=== PATIENT | female | born 1970 | race Caucasian/White ===

== ENCOUNTER 2016-10-13 16:39 | Emergency (ER) | payer OTHER ==
[2016-10-13 19:46] LABS: Hematocrit 39 % (35-47); Hemoglobin 13.2 g/dl (12.0-16.0); Mean Corpuscular HGB Conc 34 g/dl (31-36); Mean Corpuscular Hemoglobin 30 pg (27-31); Mean Corpuscular Volume 88 fL (80-97); Mean Platelet Volume 9 um3 (7.4-10.4); Red Blood Count 4.44 10^6/ul (4.0-5.4); Red Cell Distribution Width 13 % (10.5-15); White Blood Count 8.6 10^3/ul (3.5-10.8)
[2016-10-13 19:51] LABS: Urine Bacteria Absent (Absent); Urine Bilirubin Negative (Negative); Urine Glucose Negative (Negative); Urine Nitrite Negative (Negative)
[2016-10-13 20:11] LABS: ALT 15 U/L (7-52); AST 12 U/L (13-39); Albumin 4.1 g/dL (3.2-5.2); Alkaline Phosphatase 47 U/L (34-104); Anion Gap 6 mmol/L (2-11); BUN/Creatinine Ratio 15.5 (8-20); Blood Urea Nitrogen 13 mg/dL (6-24); C Reactive Protein 2.67 mg/L (< 5.00); CO2 Carbon Dioxide 27 mmol/L (22-32); Calcium 9.2 mg/dL (8.6-10.3); Chloride 104 mmol/L (101-111); EGFR African American 94.7 (>60); EGFR Non-African American 73.7 (>60); Globulin 3.2 g/dL (2-4); Glucose 91 mg/dL (70-100); Lipase 17 U/L (11.0-82.0); Potassium 3.5 mmol/L (3.5-5.0); Sodium 137 mmol/L (133-145); Total Protein 7.3 g/dL (6.4-8.9)
--- NOTE | 2016-10-13 23:01 | RAD ---
INDICATION: RIGHT flank pain. COMPARISON: None. TECHNIQUE: Multidetector CT images were obtained from the lung bases to the ischial tuberosities. Evaluation of the viscera is limited without IV contrast. Multiplanar reformation. REPORT: Unremarkable visualized inferior thorax. Normal size and density liver without evidence for focal lesions or biliary dilatation. Largely decompressed gallbladder limiting assessment without gross abnormality. Unremarkable pancreas and spleen. Negative for CT abnormality of the upper GI, small bowel, or medially extending retrocecal appendix. Mild colonic diverticulosis without findings of diverticulitis. Negative for perienteric inflammatory change, ascites, free air, or significant hernias. Normal adrenal glands. Unremarkable kidneys. Negative for nephrolithiasis, hydronephrosis, or conspicuous focal lesions. Negative for perinephric stranding. Unremarkable nondilated ureters and partially distended urinary bladder. Lobular morphology of the uterus most consistent with presence of uterine fibroids. Unremarkable adnexal regions. Negative for lymphadenopathy. Normal diameter abdominal aorta and iliac arteries. Partially decompressed IVC indicating lower volume state. Negative for suspicious osseous lesions. IMPRESSION: 1. Normal appendix documented. 2. Negative for obstructive uropathy. 3. Probable fibroid uterus.
[2016-10-13 23:10] VITALS: BP 118/78
--- NOTE | 2016-10-14 14:44 | ED ---
Debbie Aceves Claudia, scribed for Pramod Chapman MD on 10/13/16 at 1920 . Abdominal Pain/Female - HPI Summary HPI Summary: 46 year old female presents to the ED with RLQ abd pain. Pt notes she was awoken with a sharp stabbing pain to her RLQ at 0400am today. Pt notes the pain continued today with intermittent episodes of stabbing pain. She notes that she thought it was a ovarian cyst but the Sx usually resolve within a few hours. Pt also mentions NVD today. Pt notes loss of appetite since yesterday evening. Pt also notes pain aggravates with movement, specifically climbing stairs and bending over. Pt denies any alleviating factors. She currently notes pain 10/17. - History of Current Complaint Chief Complaint: EDAbdPain Stated Complaint: LOWER RT ABD PAIN Time Seen by Provider: 10/13/16 18:43 Hx Obtained From: Patient Onset/Duration: Sudden Onset - 0400am today, Still Present Pain Intensity: 4 Pain Scale Used: 0-10 Numeric Location: Discrete At: RLQ Radiates: No Character: Sharp Aggravating Factor(s): Movement Alleviating Factor(s): Nothing Associated Signs and Symptoms: Positive: Nausea, Vomiting, Diarrhea Allergies/Adverse Reactions: Allergies Allergy/AdvReac Type Severity Reaction Status Date / Time No Known Allergies Allergy Verified 10/13/16 18:51 PMH/Surg Hx/FS Hx/Imm Hx Previously Healthy: Yes Endocrine/Hematology History: Denies: Hx Diabetes, Hx Anemia Cardiovascular History: Denies: Hx Myocardial Infarction GI History: Denies: Hx Jaundice Infectious Disease History: No Infectious Disease History: Denies: Traveled Outside the [place] in Last 30 Days - Family History Known Family History: Positive: Cardiac Disease, Diabetes - Social History Occupation: Employed Full-time Lives: Alone Alcohol Amount: once a week 1-2 drinks Substance Use Type: Reports: None Smoking Status (MU): Former Smoker Type: Cigarettes Review of Systems Constitutional: Negative Negative: Fever Eyes: Negative ENT: Negative Cardiovascular: Negative Respiratory: Negative Positive: Abdominal Pain, Vomiting, Diarrhea, Nausea Genitourinary: Negative Musculoskeletal: Negative Skin: Negative Neurological: Negative Psychological: Normal All Other Systems Reviewed And Are Negative: Yes Physical Exam Triage Information Reviewed: Yes Vital Signs On Initial Exam: Initial Vitals Temp Pulse Resp BP Pulse Ox 98.1 F 71 18 133/81 100 10/13/16 16:41 10/13/16 16:41 10/13/16 16:41 10/13/16 16:41 10/13/16 16:41 Vital Signs Reviewed: Yes Appearance: Positive: Well-Appearing, No Pain Distress Skin: Positive: Warm, Skin Color Reflects Adequate Perfusion, Dry Head/Face: Positive: Normal Head/Face Inspection Eyes: Positive: Normal ENT: Positive: Normal ENT inspection Neck: Positive: Supple, Nontender Respiratory/Lung Sounds: Positive: Clear to Auscultation, Breath Sounds Present Cardiovascular: Positive: RRR Abdomen Description: Positive: Soft, [place] Tenderness Musculoskeletal: Positive: Normal Neurological: Positive: Normal Psychiatric: Positive: Affect/Mood Appropriate - [place] Coma Scale Coma Scale Total: 15 Diagnostics - Vital Signs Vital Signs Temp Pulse Resp BP Pulse Ox 10/13/16 18:41 47 92 10/13/16 18:39 124/71 10/13/16 18:30 98.9 F 66 16 124/71 100 10/13/16 16:41 98.1 F 71 18 133/81 100 - Laboratory Lab Results: Lab Results 10/13/16 10/13/16 10/13/16 Range/Units 18:50 19:30 19:30 WBC 8.6 (3.5-10.8) 10^3/ul RBC 4.44 (4.0-5.4) 10^6/ul Hgb 13.2 (12.0-16.0) g/dl Hct 39 (35-47) % MCV 88 (80-97) fL MCH 30 (27-31) pg MCHC 34 (31-36) g/dl RDW 13 (10.5-15) % Plt Count 259 (150-450) 10^3/ul MPV 9 (7.4-10.4) um3 Neut % (Auto) 56.1 (38-83) % Lymph % (Auto) 34.1 (25-47) % Hughes % (Auto) 6.6 (1-9) % Eos % (Auto) 1.9 (0-6) % Baso % (Auto) 1.3 (0-2) % Absolute Neuts (auto) 4.8 (1.5-7.7) 10^3/ul Absolute Lymphs (auto) 2.9 (1.0-4.8) 10^3/ul Absolute Monos (auto) 0.6 (0-0.8) 10^3/ul Absolute Eos (auto) 0.2 (0-0.6) 10^3/ul Absolute Basos (auto) 0.1 (0-0.2) 10^3/ul Absolute Nucleated RBC 0.01 10^3/ul Nucleated RBC % 0.1 Sodium 137 (133-145) mmol/L Potassium 3.5 (3.5-5.0) mmol/L Chloride 104 (101-111) mmol/L Carbon Dioxide 27 (22-32) mmol/L Anion Gap 6 (2-11) mmol/L BUN 13 (6-24) mg/dL Creatinine 0.84 (0.51-0.95) mg/dL Est GFR ( Amer) 94.7 (>60) Est GFR (Non-Af Amer) 73.7 (>60) BUN/Creatinine Ratio 15.5 (8-20) Glucose 91 (70-100) mg/dL Lactic Acid (0.5-2.0) mmol/L Calcium 9.2 (8.6-10.3) mg/dL Total Bilirubin 0.20 (0.2-1.0) mg/dL AST 12 L (13-39) U/L ALT 15 (7-52) U/L Alkaline Phosphatase 47 (34-104) U/L C-Reactive Protein 2.67 (< 5.00) mg/L Total Protein 7.3 (6.4-8.9) g/dL Albumin 4.1 (3.2-5.2) g/dL Globulin 3.2 (2-4) g/dL Albumin/Globulin Ratio 1.3 (1-3) Lipase 17 (11.0-82.0) U/L Beta HCG, Quant < 0.60 mIU/mL Urine Color Yellow Urine Appearance Cloudy Urine pH 5.0 (5-9) Ur Specific [place] 1.025 (1.010-1.030) Urine Protein Negative (Negative) Urine Ketones Negative (Negative) Urine Blood Negative (Negative) Urine Nitrate Negative (Negative) Urine Bilirubin Negative (Negative) Urine Urobilinogen Negative (Negative) Ur Leukocyte Esterase Trace H (Negative) Urine WBC (Auto) Trace(0-5/hpf) (Absent) Urine RBC (Auto) Trace(0-2/hpf) (Absent) Ur Squamous Epith Cells Present H (Absent) Urine Bacteria Absent (Absent) Urine Glucose Negative (Negative) 10/13/16 Range/Units 19:30 WBC (3.5-10.8) 10^3/ul RBC (4.0-5.4) 10^6/ul Hgb (12.0-16.0) g/dl Hct (35-47) % MCV (80-97) fL MCH (27-31) pg MCHC (31-36) g/dl RDW (10.5-15) % Plt Count (150-450) 10^3/ul MPV (7.4-10.4) um3 Neut % (Auto) (38-83) % Lymph % (Auto) (25-47) % Hughes % (Auto) (1-9) % Eos % (Auto) (0-6) % Baso % (Auto) (0-2) % Absolute Neuts (auto) (1.5-7.7) 10^3/ul Absolute Lymphs (auto) (1.0-4.8) 10^3/ul Absolute Monos (auto) (0-0.8) 10^3/ul Absolute Eos (auto) (0-0.6) 10^3/ul Absolute Basos (auto) (0-0.2) 10^3/ul Absolute Nucleated RBC 10^3/ul Nucleated RBC % Sodium (133-145) mmol/L Potassium (3.5-5.0) mmol/L Chloride (101-111) mmol/L Carbon Dioxide (22-32) mmol/L Anion Gap (2-11) mmol/L BUN (6-24) mg/dL Creatinine (0.51-0.95) mg/dL Est GFR ( Amer) (>60) Est GFR (Non-Af Amer) (>60) BUN/Creatinine Ratio (8-20) Glucose (70-100) mg/dL Lactic Acid 1.0 (0.5-2.0) mmol/L Calcium (8.6-10.3) mg/dL Total Bilirubin (0.2-1.0) mg/dL AST (13-39) U/L ALT (7-52) U/L Alkaline Phosphatase (34-104) U/L C-Reactive Protein (< 5.00) mg/L Total Protein (6.4-8.9) g/dL Albumin (3.2-5.2) g/dL Globulin (2-4) g/dL Albumin/Globulin Ratio (1-3) Lipase (11.0-82.0) U/L Beta HCG, Quant mIU/mL Urine Color Urine Appearance Urine pH (5-9) Ur Specific [place] (1.010-1.030) Urine Protein (Negative) Urine Ketones (Negative) Urine Blood (Negative) Urine Nitrate (Negative) Urine Bilirubin (Negative) Urine Urobilinogen (Negative) Ur Leukocyte Esterase (Negative) Urine WBC (Auto) (Absent) Urine RBC (Auto) (Absent) Ur Squamous Epith Cells (Absent) Urine Bacteria (Absent) Urine Glucose (Negative) Result Diagrams: 10/13/16 19:30 10/13/16 19:30 Lab Statement: Any lab studies that have been ordered have been reviewed, and results considered in the medical decision making process. Re-Evaluation - Re-Evaluation 1 Re-Evaluation Time: 21:37 Comment: Discussed lab results with pt and discussed non-contrast CT abd/pelvis Abdominal Pain Fem Course/Dx - Course Course Of Treatment: Esther Rogers came in concerned that she may have appendicitis because of a pain in her lower right side. Her W/U showed normal labs and a normal appendix however she does have uterine fibroids and reports heavier than usual periods lately. 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 - Diagnoses Provider Diagnoses: Uterine fibroid, Abdominal pain Discharge - Discharge Plan Condition: Stable Disposition: HOME Discharge Disposition Comment: Sign-out waiting CT Abd/Pelvis Patient Education Materials: Uterine Fibroids (ED), Abdominal Pain (ED) Referrals: Perri Martínez MD [Primary Care Provider] - 3 Days The documentation as recorded by the Debbie suarez Claudia accurately reflects the service I personally performed and the decisions made by me, Pramod Chapman MD.
== END 2016-10-13 23:26 | disposition home or self-care (01) ==
LOC: ED 16:39
DX: D25.9 Leiomyoma of uterus, unspecified (principal); R10.31 Right lower quadrant pain; R11.2 Nausea with vomiting, unspecified; R19.7 Diarrhea, unspecified; Z87.891 Personal history of nicotine dependence
CPT/HCPCS: 36415; 74176; 80053; 81003; 81015; 83605; 83690; 84702; 85025; 86140; 87086; 99283

== ENCOUNTER 2017-11-05 14:23 | Emergency (ER) | payer OTHER ==
[2017-11-05] MEDS ORDERED: Aspirin 81 mg CHEW TAB* 81 MG TAB.CHEW PO ONE (15:51)
[2017-11-05] MEDS ORDERED: Nitroglycerin TAB 0.4 MG* 0.4 MG TAB SL ONE (15:51)
[2017-11-05 16:15] LABS: Hematocrit 38 % (35-47); Hemoglobin 13.3 g/dl (12.0-16.0); Mean Corpuscular HGB Conc 35 g/dl (31-36); Mean Corpuscular Hemoglobin 30 pg (27-31); Mean Corpuscular Volume 88 fL (80-97); Mean Platelet Volume 8.9 um3 (7.4-10.4); Platelet Count 282 10^3/ul (150-450); Red Blood Count 4.37 10^6/ul (4.0-5.4); Red Cell Distribution Width 13 % (10.5-15); White Blood Count 7.4 10^3/ul (3.5-10.8)
[2017-11-05 16:24] LABS: INR 0.94 (0.77-1.02)
[2017-11-05 16:38] LABS: EGFR Non-African American 73.3 (>60)
--- NOTE | 2017-11-05 16:44 | RAD ---
INDICATION: Chest pain and ankle swelling. COMPARISON: October 13, [address] TECHNIQUE: Dual energy PA and routine lateral views of the chest were obtained. REPORT: Clear lungs and pleural spaces. Negative for pneumothorax. The heart, pulmonary vasculature, and mediastinal contours are unremarkable. Unremarkable osseous structures and soft tissue contours. IMPRESSION: No evidence for acute intrathoracic disease.
[2017-11-05] MEDS ORDERED: Nitroglycerin 2% OINT* 1 GM PAK TOPICAL ONE (17:00)
[2017-11-05] MEDS ORDERED: Nitroglycerin 2% OINT* 1 GM PAK ONE (17:01)
[2017-11-05] MEDS ORDERED: Iohexol 300* (CONTRAST) 10 ML SDV IV ONE (18:11)
[2017-11-05] MEDS ORDERED: NS 0.9% 1000 ML* 1,000 ML IV ONE (18:14)
[2017-11-05] MEDS ORDERED: Acetaminophen TAB* 325 MG PO PRN (18:40)
--- NOTE | 2017-11-05 19:25 | CONSULT ---
Subjective Date of Service: 11/05/17 Interval History: This is a 47 year old female with a report of left sided chest wall pain that radiates into the left axilla. Worse with deep inspiration and palpation. Patient also reports bilateral ankle edema throughout the day that resolves after elevation and is gone in the morning. Patient states that she is active, walks daily is on her feet a lot. Walks her dog which pulls on the leash quite a bit. States the pain started a couple of days ago and has gotten worse, denies associated dyspnea, no diaphoresis, no dizziness, no headache. Family History: Findings - mother with hypertension and post-operative PE after knee replacement, unknown paternal hx Social History: Findings - remote history of tobacco, does not drink ETOH regularly, works FT, sister is proxy Past Medical History: Findings - no reported medical history Review of Systems - Review of Systems Constitutional Symptoms: Negative: Weight Gain, Weight Loss, Weakness, Fatigue, Fever, Night Sweats, Unexplained Falls, Other Dermatology: Negative: Normal, Rash, Skin Lesions, Cancer, Skin Lumps, Other HEENT: Negative: Normal, Change in Hearing, Vertigo, Dental Problems, Tinnitus, Sinus Problem, Other Eyes: Negative: Normal, Change in Vision, Double Vision, Eye Pain, Glaucoma, Cataract, Contacts or Glasses, Other Thyroid: Negative: Normal, Goiter, Thyroid Nodule, Cold Intolerance, Heat Intolerance , Sweatiness, Tremor, Frequent Defecation, Constipation, Palpitations, Primary Hypothyroidism, Primary Hyperthyroidism, Weight Loss, Weight Gain, Change in Skin/Hair, Change in Menstruation, Radiation Exposure, Other Pulmonary: Positive: Other - left chest pain with deep inspiration Cardiology: Positive: Swelling of Ankles Gastroenterology: Negative: Normal, Abdominal Pain, Nausea, Vomiting, Anorexia, Indigestion, Difficulty Swallowing, Heartburn, Constipation, Diarrhea, Blood in Stools, Change in Bowel Habits, Haematemesis, Melena, Other Genital - Urinary: Negative: Normal, Dysuria, Hematuria, Polyuria, Nocturia, Other Genitourinay - Female: Negative: Menses Normal, Vaginal Discharge, Menopause, Dysmenorrhea, Other Musculoskeletal: Positive: Other - chest wall pain Endocrinology: Negative: Normal, Thyroid Problems, Adrenal Problems, Gonadal Problems, Family Hx Endocrine Disorders, Obesity, Diabetes Mellitus, Hyperglycemia, Hx Hypoglycemia, Diabetic Foot Ulcers, Calluses, Hirsutism, Menstral Abnormalities , Polydipsia, Polyuria, Gonadal Problems, Gynecomastia, Pituitary disease, Other Hematologic/Lymphatic: Negative: Anemia, Easy Brusing, Hx Leukemia, Hx Lymphoma, Use of Anticoagulant, Use of Antiplatelet Drugs, Other Neurology: Negative: Normal, Headache, Migraines, Change in Vision, Diplopia, Dizziness , Change in Balancing, Change in Coordination, Change in Memory, Change in Speech, Change in Sphincter Function, Change in Walking, Numbness\Paresthesiae, Unexplained Weakness, Hx of Stroke\TIA, Hx of Seizures, Other Psychiatry: Negative: Normal, Depression, Anxiety, Depressed Mood, Adhedonia, Sexual Dysfunction, Weight Change, Guilt Feelings, Tearfulness, Unusual Fatigue, Unusual Anxiety, Suicidal Ideation, Hypomania, Eating Disorders, Other Allergic/Immunologic: Negative: Hx Anaphylaxis, Hx Angioedema, Hx Environmental, Hx Seasonal, Athsma, Hx HIV, Immunocompromise, Swollen Glands LymphNodes, Other Objective Active Medications: Acetaminophen (Tylenol Tab*) 650 mg PO Q6H PRN PRN Reason: fever or headache Additional Medications: Multivitamin Vital Signs - 8 hr 11/05/17 18:51 Temperature 97.6 F Pulse Rate 70 Respiratory 16 Rate Blood Pressure 107/69 (mmHg) O2 Sat by Pulse 100 Oximetry Oxygen Devices in Use Now: None Appearance: Alert, anxious Ears/Nose/Mouth/Throat: NL Teeth, Lips, Gums, Mucous Membranes Moist Neck: NL Appearance and Movements; NL JVP, No Thyroid Enlargement, Masses Respiratory: Symmetrical Chest Expansion and Respiratory Effort, Clear to Auscultation Cardiovascular: NL Sounds; No Murmurs; No JVD, RRR, No Edema Abdominal: NL Sounds; No Tenderness; No Distention Lymphatic: No Cervical Adenopathy Extremities: No Edema, No Clubbing, Cyanosis Skin: No Rash or Ulcers Neurological: Alert and Oriented x 3, NL Sensation, NL Gait Nutrition: Taking PO's Result Diagrams: 11/05/17 15:55 11/05/17 15:55 Diagnostic Imaging: Patient Name: ERICK IRVING Medical Record#: [id number] Ordering Physician: Stefano Al MD Acct.#: [id number] : 1970 Age: 47 Sex: F Location: EMERGENCY DEPARTMENT Exam Date: 11/05/17 155 ADM Status: PRE ER Order Information: CHEST PA & LAT 2 VWS Accession Number: [id number] CPT: 02369 INDICATION: Chest pain and ankle swelling. COMPARISON: October 13, [address] TECHNIQUE: Dual energy PA and routine lateral views of the chest were obtained. REPORT: Clear lungs and pleural spaces. Negative for pneumothorax. The heart, pulmonary vasculature, and mediastinal contours are unremarkable. Unremarkable osseous structures and soft tissue contours. IMPRESSION: No evidence for acute intrathoracic disease. <Electronically signed by Charles Clifton MD in OV> 11/05/17 1641 Dictated By: Charles Clifton MD Dictated Date/Time: 11/05/17 164 Transcribed Date/Time: 11/05/17 1639 Copy to: EKG Data: RSR, no ectopy Assessment/Plan - Billing Plan By Medical Problem: 1. Chest Wall Pain 2. Ankle edema, now resolved Recommendations 1. CTA of the chest has been ordered but was not completed yet. Patient wishes to complete the CT of her chest to rule out PE but if it is negative she wishes to be discharged to home and wants to follow up with Dr. Sagastume this week, and will pursue continued outpatient work up and diagnostics as warranted. 2. Explained to patient that we recommend the patient stay to trend troponins and have stress test in the morning. If negative, she can be discharged after. 3. Given the reproducible nature of this chest wall pain and pain when left axilla is palpated, muskuloskeletal pain/costochondritis would still be in the differential. Also recommended compression socks for ankle edema, as swelling dissipates with elevation and is likely vascular dependent edema. Also cautioned against high sodium in meals. 4. In either case, patient warrants outpatient follow up early this week if she wishes to be discharged after CTA. Patient states she is agreeable to immediate follow up and would return to the ER if she had continued symptoms, or any shortness of breath, dizziness or increased pain. 5. These recommendations were discussed with Dr. Al and he is aware of the patient's wishes. Also discussed with Dr. Mary, attending Hospitalist. Thank you for asking us to evaluate this patient with you. Please do not hesitate to call us back if patient wishes to pursue admission.
--- NOTE | 2017-11-05 19:55 | RAD ---
INDICATION: Chest pain. Family history of PE. Bilateral leg swelling. COMPARISON: November 05, 2017 chest radiograph TECHNIQUE: Multidetector CT images were obtained from the lung apices to the upper abdomen with 75 mL Omnipaque 350 IV contrast. Pulmonary angiogram protocol. Multiplanar reformation including with maximum intensity projection. REPORT: Negative for pulmonary infiltrate, focal pulmonary lesion, pleural effusion, pneumothorax. 0.8 cm short axis RIGHT paratracheal lymph node and similar size subcarinal lymph node. Bilateral hilar nodes measuring up to 0.7 cm short axis on the RIGHT and 0.6 cm short axis on the LEFT within normal limits. Negative for cardiomegaly or pericardial effusion. Normal diameter thoracic aorta. Negative for aortic dissection. No filling defects are identified from the main to the subsegmental pulmonary arteries to indicate presence of a pulmonary embolism. Unremarkable Limited images through the upper abdomen. Negative for suspicious thoracic osseous lesions. IMPRESSION: 1. Negative for pulmonary embolism. 2. Negative for pneumonia. 3. Upper normal sized mediastinal and hilar lymph nodes. While nonspecific consider potential sarcoidosis. 4. No compelling evidence for pulmonary edema.
[2017-11-05] MEDS ORDERED: Iohexol 350* (CONTRAST) 500 ML MDV IV ONE (21:04)
[2017-11-05 21:26] VITALS: BP 107/85
--- NOTE | 2017-11-14 08:58 | ED ---
Sherif Aceves Tiffany, scribed for Stefano Al MD on 11/05/17 at 1544 . Lower Extremity - HPI Summary HPI Summary: The patient is a 47 year old female presenting to [facility] accompanied by sister and nephew complains of bilateral leg swelling since 10/30/17, worse since yesterday evening. Symptoms aggravated by nothing. Symptoms alleviated by nothing. Reports chest pressure that began last night. States that chest pain is constant, feels like squeezing and pressure, radiates to upper shoulder. Additionally reports shortness of breath. Denies cough. Reports left ankle injury from a "couple of years ago," but never had surgery. A few days ago, right ankle began swelling. Expresses concern for family history of PE and kidney issues. Additionally reports right knee swelling. - History of Current Complaint Chief Complaint: EDChestPainROMI Stated Complaint: CHEST PAIN/SWOLLEN ANKLES Time Seen by Provider: 11/05/17 15:28 Hx Obtained From: Patient Timing: Constant Associated Signs And Symptoms: Positive: Negative - Cough, Swelling - Right ankle, right knee, Other - chest pressure that began last night, is constant, feels like squeezing and pressure, radiates to upper shoulder; shortness of breath Aggravating Factor(s): Nothing Alleviating Factor(s): Nothing - Allergies/Home Medications Allergies/Adverse Reactions: Allergies Allergy/AdvReac Type Severity Reaction Status Date / Time No Known Allergies Allergy Verified 10/13/16 18:51 Home Medications: Home Medications Multivitamins/Minerals TAB* [Theragran/minerals TAB*] 1 tab PO DAILY 11/05/17 [ History Confirmed 11/05/17] PMH/Surg Hx/FS Hx/Imm Hx Previously Healthy: No Endocrine/Hematology History: Denies: Hx Diabetes, Hx Anemia Cardiovascular History: Denies: Hx Myocardial Infarction GI History: Denies: Hx Jaundice - Surgical History Surgery Procedure, Year, and Place: None Infectious Disease History: No Infectious Disease History: Denies: Traveled Outside the [place] in Last 30 Days - Family History Known Family History: Positive: Cardiac Disease - Grandfather, Diabetes, Other - Pulmonary embolism in grandmother, - Social History Alcohol Use: Occasionally Alcohol Amount: once a week 1-2 drinks Hx Substance Use: No Substance Use Type: Reports: None Hx Tobacco Use: Yes Smoking Status (MU): Former Smoker Type: Cigarettes Review of Systems Negative: Fever, Chills Negative: Erythema Negative: Sore Throat Positive: Chest Pain - , is constant, feels like squeezing and pressure, radiates to upper shoulder Positive: Shortness Of Breath. Negative: Cough Negative: Abdominal Pain, Vomiting, Nausea Negative: dysuria, hematuria Positive: Edema - Bilateral leg, right ankle, right knee. Negative: Myalgia Negative: Rash Neurological: Negative - Dizziness All Other Systems Reviewed And Are Negative: Yes Physical Exam - Summary Physical Exam Summary: Constitutional: Well-developed, Well-nourished, Alert. Skin: Warm, Dry HENT: Normocephalic; Atraumatic Eyes: Conjunctiva normal Neck: Musculoskeletal ROM normal neck. (-) JVD, (-) Stridor, (-) Tracheal deviation Cardio: Rhythm regular, rate normal, Heart sounds normal; Intact distal pulses; The pedal pulses are 2+ and symmetric. Radial pulses are 2+ and symmetric. (-) Murmur Pulmonary/Chest wall: Effort normal. (-) Respiratory distress, (-) Wheezes, (-) Rales Abd: Soft, (-) Tenderness, (-) Distension, (-) Guarding, (-) Rebound Musculoskeletal: Post-op swelling on right knee from when she was 4 years old Lymph: (-) Cervical adenopathy Neuro: Alert, Oriented x3 Psych: Patient is concerned for FHx of PE and kidney issues. She is mildly anxious-appearing. Triage Information Reviewed: Yes Vital Signs On Initial Exam: Initial Vitals Temp Pulse Resp BP Pulse Ox 97.6 F 73 18 138/94 98 11/05/17 14:25 11/05/17 14:25 11/05/17 14:25 11/05/17 14:25 11/05/17 14:25 Vital Signs Reviewed: Yes Diagnostics - Vital Signs Vital Signs Temp Pulse Resp BP Pulse Ox 11/05/17 14:25 97.6 F 73 18 138/94 98 - Laboratory Result Diagrams: 11/05/17 15:55 11/05/17 15:55 Lab Statement: Any lab studies that have been ordered have been reviewed, and results considered in the medical decision making process. - Radiology CXR Radiology Interpretation Completed By: Radiologist - No evidence for acute intrthoracic disease. ED Physician has reviewed this report. - CT Chest/Thorax CT CT Interpretation Completed By: Radiologist - 1. Negative for Pulmonary Embolism 2. Negative for pneumonia 3. upper normal sized medistinal and hilar lymphnodes while nonspecific consider potential sarcoidosis 4. No compelling evidence for pulmonary edema ED Physician has reviewed this report. - EKG 1430 Cardiac Rate: NL EKG Rhythm: Sinus Rhythm - at 72 BPM EKG Interpretation: no STEMI Re-Evaluation - Re-Evaluation 1 Re-Evaluation Time: 18:15 Comment: Pt rates pain 4/10 in severity. Lower Extremity Course/Dx - Course Course Of Treatment: 47 year old [facility] of bilateral leg swelling since 10/30/17, worse since yesterday evening. Reports chest pressure that began last night. States that chest pain is constant, feels like squeezing and pressure, radiates to upper shoulder. Additionally reports shortness of breath. CXR and EKG are no acutly concerning. However, pt is of clinical concern since she has not seen her PCP in several years. She has no available follow up for a stress test. Her fathers medically history is unknown. Discussed with Dr. Weems, a planned stress test tomorrow morning. A less desirable plan is to have patient follow up with her PCP. I am not confident this could happen in a timely manner. Information about sarcoidosis was provided. I specified that the sarcoidosis finding is an uncofirmed dx. I explained to pt the risks of AMA including disability and . Pt was also given the [facility] referal list to find a new PCP if needed. - Diagnoses Provider Diagnoses: Chest pain, unspecified, Abnormal finding on CT scan - Physician Notifications Discussed Care Of Patient With: Kurtis Chun MD - hospitalist Time Discussed With Above Provider: 18:23 Instructed by Provider To: Admit As Inpatient Discharge - Sign-Out/Discharge Documenting (check all that apply): Discharge/Admit/Transfer - admit - Discharge Plan Condition: Stable Disposition: ADMITTED TO [facility] documentation as recorded by the Sherif suarez Tiffany accurately reflects the service I personally performed and the decisions made by me, Stefano Al MD.
== END 2017-11-05 21:20 | disposition left against medical advice (07) ==
LOC: ED 14:23 → UNDOADMOB 18:35 → MEDTELE 18:35
DX: R07.89 Other chest pain (principal); R94.8 Abnormal results of function studies of other organs and systems; Z87.891 Personal history of nicotine dependence; Z53.21 Procedure and treatment not carried out due to patient leaving prior to being seen by health care provider
CPT/HCPCS: 36415; 71046; 71275; 80053; 83880; 84484; 85027; 85610; 85730; 93005; 99284; A9270-GY; Q9967

== ENCOUNTER 2024-08-02 11:36 | Inpatient (IN) ==
[2024-08-02] MEDS ORDERED: methylPREDNISolone SOD SUCC 125 mg 2 ML VIAL IV ONE (16:26)
[2024-08-02] MEDS: Acetaminophen IV 1 GM/100ML 1,000 MG/100 ML BAG IV ONE (16:47)
[2024-08-02 17:08] LABS: ABS Basophils 0.1 10^3/uL (0.0-0.1); ABS Eosinophils 0.1 10^3/uL (0.0-0.5); ABS Lymphocytes 3.2 10^3/uL (1.0-4.8); ABS Monocytes 0.5 10^3/uL (0.0-0.9); ABS Neutrophils 4.3 10^3/uL (1.5-7.6); ABS Nucleated RBC 0.01 10^3/ul; Hematocrit 38.7 % (35-45); Hemoglobin 13.3 g/dL (11.5-14.3); Lymphocyte % 39.3 %; Mean Corpuscular Hemoglobin 30.2 pg (27-33); Mean Corpuscular Hgb Conc 34.3 g/dL (31-36); Mean Corpuscular Volume 88.1 fL (80-97); Mean Platelet Volume 9.1 fL (7.5-11.2); Nucleated Red Blood Cells % 0.1 %/100WBC (0.0-0.8); Platelet Count 262 10^3/uL (150-450); Red Blood Count 4.39 10^6/uL (3.63-4.92); White Blood Count 8.3 10^3/uL (3.8-11.8)
[2024-08-02] MEDS: methylPREDNISolone SOD SUCC 1000 MG in NS 0.9% 100 ML IVPB ONE (17:46)
[2024-08-02 17:49] LABS: C Reactive Protein 4.29 mg/L (<8.01)
[2024-08-02 17:57] LABS: Calcium 9.6 mg/dL (8.6-10.3); Creatinine, Serum 0.8 mg/dL (0.51-0.95); Potassium 4.1 mmol/L (3.5-5.0); eGFR CKD-EPI 88.6 (>60)
[2024-08-02 18:05] LABS: TSH Ultra Thyroid Stim Horm 1.47 mcIU/mL (0.34-5.60)
[2024-08-02 18:16] LABS: Folate 11.42 ng/mL (5.90-24.80)
[2024-08-02 19:01] LABS: Erythrocyte Sed Rate 20 mm/Hr (0-29)
[2024-08-02] MEDS: Midazolam 5 mg/5 ml VIAL 1 mg/ml 5 ml VIAL (5 mg) IV SLOW PU ONE (20:47)
[2024-08-03] MEDS: Cyanocobalamin INJ 1,000 MCG/ML VIAL 1 ML VIAL IM ONE ×2 (01:08→12:07)
[2024-08-03] MEDS ORDERED: Senna TAB 8.6 mg TAB PO PRN (05:51)
[2024-08-03] MEDS: Gadoteridol (CONTRAST) 279.3 MG/ML 10 ML IV ONE (07:59)
[2024-08-03] MEDS: Polyethylene Glycol 3350 17 GM PACKET PO SCH (09:34)
[2024-08-03] MEDS ORDERED: Lorazepam PYXIS KEY PRN (10:22)
[2024-08-03] MEDS ORDERED: Lidocaine 1% MPF 5 ML VIAL ONE (10:23)
[2024-08-03] MEDS: LORazepam 2 mg VIAL 1 ml IV PUSH ONE ×2 (10:35→11:33)
[2024-08-03] MEDS: Multivitamins/Minerals TAB PO SCH (12:03)
[2024-08-03] MEDS: methylPREDNISolone SOD SUCC 1,000 MG in NS 0.9% 250 ml 250 ML IVPB SCH (15:02)
[2024-08-03] MEDS ORDERED: methylPREDNISolone SOD SUCC 1,000 MG in NS 0.9% 1000 ml BAG 1,000 ML IVPB ONE (17:00)
[2024-08-03] MEDS: Iohexol 350 (CONTRAST) 500 ML MDV IV ONE (17:41)
[2024-08-04] MEDS: Enoxaparin 40 MG/0.4 ML SYR SUBCUT ONE (11:31)
[2024-08-05] MEDS: Cyanocobalamin INJ 1,000 MCG/ML VIAL 1 ML VIAL IM SCH (08:51)
[2024-08-05] MEDS: Ondansetron 4 mg VIAL 2 MG/ML 2 ml VIAL IV PRN (13:52)
[2024-08-05 14:10] LABS: Hematocrit 37.2 % (35-45); Hemoglobin 12.6 g/dL (11.5-14.3); Mean Corpuscular Hemoglobin 29.9 pg (27-33); Mean Corpuscular Hgb Conc 33.9 g/dL (31-36); Mean Platelet Volume 9.1 fL (7.5-11.2); Platelet Count 262 10^3/uL (150-450); Red Blood Count 4.23 10^6/uL (3.63-4.92); Red Cell Distribution Width 14.3 % (12-17); White Blood Count 12.9 10^3/uL (3.8-11.8)
[2024-08-05 16:20] LABS: Erythrocyte Sed Rate 20 mm/Hr (0-29)
[2024-08-05 16:26] LABS: Body Fluid Source Cerebral Spinal
[2024-08-05 16:44] LABS: CSF Glucose 64 mg/dL (40-70)
[2024-08-05] MEDS: fentaNYL 100 mcg/2 ml 50 MCG/ML VIAL ONE (17:02)
[2024-08-05 17:19] LABS: Body Fluid Appearance Clear; Body Fluid Color Colorless; CSF Tube # 4
[2024-08-05 17:38] LABS: Body Fluid Mono 27 %; Body Fluid Total Cells Counted 200
[2024-08-05 17:44] LABS: CSF Body Fluid WBC 73 /mcL (0-5)
[2024-08-06] MEDS: Lactated Ringers 1000 ml BAG 1,000 ML IV SCH (06:20)
[2024-08-06 09:59] LABS: Hematocrit 35.2 % (35-45); Hemoglobin 12.2 g/dL (11.5-14.3); Mean Corpuscular Hemoglobin 30.4 pg (27-33); Mean Corpuscular Hgb Conc 34.7 g/dL (31-36); Mean Corpuscular Volume 87.4 fL (80-97); Mean Platelet Volume 8.5 fL (7.5-11.2); Platelet Count 202 10^3/uL (150-450); Red Blood Count 4.03 10^6/uL (3.63-4.92); Red Cell Distribution Width 14.1 % (12-17); White Blood Count 6.4 10^3/uL (3.8-11.8)
[2024-08-06 10:05] LABS: INR 1.11 (0.85-1.14)
[2024-08-06 10:33] LABS: Calcium 7.5 mg/dL (8.6-10.3); Creatinine, Serum 0.91 mg/dL (0.51-0.95); Potassium 3.2 mmol/L (3.5-5.0); eGFR CKD-EPI 75.9 (>60)
[2024-08-06 15:27] LABS: MOG FACS, S Negative (Negative)
[2024-08-06] MEDS: Azithromycin 500 mg/250 ml NS 500 MG/250 ML BAG IVPB ONE ×2 (16:19)
[2024-08-06] MEDS: Acyclovir IV 800 MG in NS 0.9% 250 ml 250 ML IVPB SCH (17:34)
[2024-08-06] MEDS: Enoxaparin 40 MG/0.4 ML SYR SUBCUT SCH (17:34)
[2024-08-07] MEDS: Potassium Chlor 20 meq TAB.ER PO ONE (10:47)
[2024-08-07 11:26] LABS: ABS Eosinophils 0.1 10^3/uL (0.0-0.5); ABS Lymphocytes 2.4 10^3/uL (1.0-4.8); ABS Monocytes 0.4 10^3/uL (0.0-0.9); ABS Neutrophils 4.1 10^3/uL (1.5-7.6); Eosinophil % 0.9 %; Hematocrit 37.6 % (35-45); Hemoglobin 13.4 g/dL (11.5-14.3); Lymphocyte % 34.7 %; Mean Corpuscular Hemoglobin 30.7 pg (27-33); Mean Corpuscular Hgb Conc 35.6 g/dL (31-36); Mean Corpuscular Volume 86.3 fL (80-97); Mean Platelet Volume 8.7 fL (7.5-11.2); Platelet Count 219 10^3/uL (150-450); Red Blood Count 4.35 10^6/uL (3.63-4.92); Red Cell Distribution Width 13.5 % (12-17); White Blood Count 7.1 10^3/uL (3.8-11.8)
[2024-08-07] MEDS: Lactated Ringers 1000 ml BAG 1,000 ML IV ONE (11:44)
[2024-08-07 11:51] LABS: Calcium 8.2 mg/dL (8.6-10.3); Creatinine, Serum 0.74 mg/dL (0.51-0.95); Potassium 3.2 mmol/L (3.5-5.0); eGFR CKD-EPI 97.3 (>60)
[2024-08-07] MEDS: Lactated Ringers 1000 ml BAG 1,000 ML IV SCH (12:40)
[2024-08-07] MEDS: NS 0.9% IVPB SCH (12:47)
[2024-08-07] MEDS: METHYLPREDNISOLONE SOD SUCC IVPB SCH (12:47)
[2024-08-07] MEDS ORDERED: Lorazepam PYXIS KEY PRN ×2 (12:49→13:40)
[2024-08-07] MEDS ORDERED: LORazepam 2 mg VIAL 1 ml IV PUSH PRN (13:40)
[2024-08-07] MEDS: LORazepam 2 mg VIAL 1 ml IV PUSH ONE (13:53)
[2024-08-07] MEDS ORDERED: Azithromycin 500 mg/250 ml NS 500 MG/250 ML BAG IVPB SCH (16:00)
[2024-08-07] MEDS: Gadoteridol (CONTRAST) 279.3 MG/ML 10 ML IV ONE (18:58)
[2024-08-07 21:13] LABS: HSV 1 PCR, CSF Negative (Negative); HSV 2 PCR, CSF Negative (Negative)
[2024-08-07 22:02] LABS: Adenovirus F40/41 Negative (Negative); Astrovirus Negative (Negative); Cryptosporidium species Negative (Negative); Cyclospora cayetanensis Negative (Negative); Entamoeba histolytica Negative (Negative); Enteroaggregative E.coli(EAEC) Negative (Negative); Enteropathogenic Ecoli(EPEC) Negative (Negative); Enterotoxigenic Ecoli(ETEC) Negative (Negative); Norovirus GI/GII Positive (Negative); Plesiomonas shigelloides Negative (Negative); Salmonella species Negative (Negative); Sapovirus Negative (Negative); Shiga toxin producing E. coli Negative (Negative); Shigella/Enteroinvasive E.coli Negative (Negative); Specimen Source STOOL; Vibrio cholerae Negative (Negative); Yersinia species Negative (Negative)
[2024-08-08] MEDS ORDERED: Lidocaine PATCH 5% PATCH TRANSDERM SCH (07:00)
[2024-08-08 07:24] LABS: Calcium 8.2 mg/dL (8.6-10.3); Creatinine, Serum 0.63 mg/dL (0.51-0.95); Potassium 3.8 mmol/L (3.5-5.0); eGFR CKD-EPI 106.7 (>60)
[2024-08-08 10:04] LABS: IgG Immunoblot Negative
[2024-08-08 10:05] LABS: IgM Immunoblot Positive
[2024-08-08 11:39] LABS: Mycoplasma pneumoniae IgG Ab Positive (Negative); Mycoplasma pneumoniae IgM Ab Negative (Negative)
[2024-08-08 14:27] LABS: NMO/AQP4 IgG Negative (Negative)
[2024-08-08 14:39] LABS: CSF VDRL Negative (Negative)
[2024-08-08 15:37] LABS: Albumin, CSF 37.7 mg/dL (<=27.0); Albumin, S 3900 mg/dL; IgG Index, CSF 0.48 (<=0.70); IgG, CSF 4.9 mg/dL (<=8.1); IgG, S 1040 mg/dL (767 - 1590); IgG/Albumin, CSF 0.13 (<=0.21); IgG/Albumin, S 0.27 (<=0.40); Synthesis Rate, CSF 0.87 mg/24 h (<=12)
[2024-08-08 17:12] LABS: CSF Oligoclonal Bands 5 bands; Oligoclonal Proteins Interpret 4 bands (<2); Serum Oligoclonal Bands 1 bands
[2024-08-08] MEDS: Calcium Carb (TUMS) 500 mg CHEW TAB PO PRN (21:22)
[2024-08-09 07:10] LABS: ABS Lymphocytes 1.6 10^3/uL (1.0-4.8); ABS Monocytes 0.6 10^3/uL (0.0-0.9); ABS Neutrophils 10.5 10^3/uL (1.5-7.6); ABS Nucleated RBC 0.01 10^3/ul; Hemoglobin 12.3 g/dL (11.5-14.3); Lymphocyte % 12.7 %; Mean Corpuscular Hemoglobin 30.3 pg (27-33); Mean Corpuscular Volume 86.5 fL (80-97); Mean Platelet Volume 9.4 fL (7.5-11.2); Nucleated Red Blood Cells % 0.1 %/100WBC (0.0-0.8); Platelet Count 258 10^3/uL (150-450); Red Blood Count 4.05 10^6/uL (3.63-4.92); Red Cell Distribution Width 13.9 % (12-17); White Blood Count 12.8 10^3/uL (3.8-11.8)
[2024-08-09 07:31] LABS: Creatinine, Serum 0.57 mg/dL (0.51-0.95); Potassium 3.7 mmol/L (3.5-5.0); eGFR CKD-EPI 109.3 (>60)
[2024-08-09 14:25] VITALS: BP 153/98
== END 2024-08-09 15:30 | disposition home or self-care (01) | DRG 99 ==
LOC: ED 11:36 → EDHOLD 11:36 → SUATTDRO 08-03 04:21 → MED 08-03 07:45
PROVIDERS: ADMIT Student in an Organized Health Care Education/Training Program; ATTEND Hospitalist